=== PATIENT | female | born 2000 | race African-American/Black ===

== ENCOUNTER 2021-03-21 08:58 | Inpatient (IN) ==
[2021-03-21] MEDS ORDERED: ONDANSETRON 4 MG/2 ML VIAL IV PRN (09:27)
[2021-03-21] MEDS ORDERED: MEPERIDINE 25 MG/1 ML VIAL IV PRN (09:27)
[2021-03-21] MEDS ORDERED: MEPERIDINE 50 MG/1 ML VIAL IV PRN (10:00)
[2021-03-21 10:48] LABS: Basophils % 0.3 % (0.0-0.8); Eosinophils % 0.4 % (0.00-10.9); Hematocrit 35.9 VOL% (35.7-47.0); Hemoglobin 11.6 GM/DL (12.0-16.0); Immature Granulocytes % 0.5 %; Immature Granulocytes Absolute 0.04 #; Lymphocytes % 26.6 % (21.3-54.2); Mean Corpuscular HGB Conc 32.3 GM/DL (32-36); Mean Corpuscular Volume 95.2 FL (87-102); Mean Platelet Volume 10.9 FL (9.6-12.0); Monocytes % 13.1 % (1.7-12.7); Neutrophils % 59.1 % (38.7-73.9); Platelet Count 191 T/CUMM (130-400); Red Blood Count 3.77 MC/CUMM (3.8-5.5); White Blood Count 7.5 T/CUMM (4-12)
[2021-03-21] MEDS: LACTATED RINGERS 1,000 ML IV SCH ×2 (17:55→21:17)
[2021-03-21] MEDS: MEPERIDINE 50 MG/1 ML VIAL IV PRN ×2 (18:17→20:37)
[2021-03-21] MEDS ORDERED: OXYTOCIN/LR 20 UNIT/1,000 ML BAG IV ONE ×2 (22:00→22:05)
[2021-03-21] MEDS ORDERED: miSOPROStoL 200 MCG TABLET ONE (22:05)
[2021-03-21] MEDS ORDERED: TRANEXAMIC ACID 1,000 MG/10 ML VIAL ONE (22:05)
[2021-03-21] MEDS ORDERED: CARBOPROST TROMETHAMINE 250 MCG/ML AMP IM ONE (22:06)
[2021-03-21] MEDS ORDERED: METHYLERGONOVINE 0.2 MG/1 ML AMP ONE (22:06)
[2021-03-21] MEDS ORDERED: LIDOCAINE 1% 50 ML VIAL ONE (22:09)
[2021-03-22 00:14] LABS: Cord Arterial Blood HCO3 20.9 MMOL/L
[2021-03-22 00:18] LABS: Cord Venous Blood HCO3 18.1 MMOL/L; Cord Venous Blood PCO2 42.9 MMHG
[2021-03-22] MEDS ORDERED: OXYTOCIN/LR 20 UNIT/1,000 ML BAG IV ONE ×2 (03:15→03:22)
[2021-03-22] MEDS ORDERED: ACETAMINOPHEN 325 MG TABLET PO PRN (03:22)
[2021-03-22] MEDS ORDERED: IBUPROFEN 800 MG TABLET PO PRN (03:22)
[2021-03-22] MEDS ORDERED: oxyCODONE/ACETAMINOPHEN 5-325 MG TABLET PO PRN ×2 (03:22)
[2021-03-22] MEDS ORDERED: DIPH/TET/ACEL PERT BOOSTER VACCINE 0.5 ML VIAL IM ONE (03:22)
[2021-03-22] MEDS ORDERED: WITCH HAZEL PADS 100/JAR TOP PRN (03:22)
[2021-03-22] MEDS ORDERED: BENZOCAINE 20%/MENTHOL 0.5% SPRAY 56 GM CAN TOP PRN (03:22)
[2021-03-22] MEDS ORDERED: BISACODYL 10 MG SUPP RECTAL PRN (03:22)
[2021-03-22] MEDS ORDERED: HYDROCORTISONE 2.5% RECTAL CREAM 30 GM TUBE TOP PRN (03:22)
[2021-03-22] MEDS ORDERED: RHO(D) IMMUNE GLOBULIN 300 MCG SYRINGE IM ONE (03:22)
[2021-03-22] MEDS ORDERED: LANOLIN 50% CREAM 0.3 OZ TUBE TOP PRN (03:22)
[2021-03-22] MEDS ORDERED: MEASLES/MUMPS/RUBELLA VACCINE 0.5 ML VIAL SUBCUT ONE (03:22)
[2021-03-22] MEDS: LACTATED RINGERS 1,000 ML IV SCH (04:05)
[2021-03-22 05:58] LABS: Basophils % 0.1 % (0.0-0.8); Hematocrit 34.5 VOL% (35.7-47.0); Hemoglobin 11.7 GM/DL (12.0-16.0); Immature Granulocytes % 0.7 %; Immature Granulocytes Absolute 0.17 #; Lymphocytes # 1.1 10*3/uL (1.4-4.0); Lymphocytes % 4.6 % (21.3-54.2); Mean Corpuscular HGB Conc 33.9 GM/DL (32-36); Mean Corpuscular Volume 92.7 FL (87-102); Mean Platelet Volume 11.4 FL (9.6-12.0); Monocytes % 7.5 % (1.7-12.7); Neutrophils % 87.1 % (38.7-73.9); Platelet Count 174 T/CUMM (130-400); Red Blood Count 3.72 MC/CUMM (3.8-5.5); Red Cell Distribution Width 12.5 % (9.3-17.3); White Blood Count 24.1 T/CUMM (4-12)
[2021-03-22 06:22] LABS: Band Neutrophils 1 % (0-10); Hypochromasia Slight; Lymphocytes 4 % (20-55); Microcytosis Slight; Platelet Estimate Adequate; Segmented Neutrophils 90 % (50-85); Total Cells Counted 100
[2021-03-22] MEDS: DOCUSATE SODIUM 100 MG CAPSULE PO SCH ×2 (10:56→20:49)
[2021-03-23] MEDS: DOCUSATE SODIUM 100 MG CAPSULE PO SCH (08:03)
[2021-03-23 09:39] VITALS: BP 118/76
== END 2021-03-23 13:55 | disposition home or self-care (01) | DRG 560 ==
LOC: N.LD 08:58 → N.OB 03-22 03:20
PROVIDERS: ADMIT Obstetrics & Gynecology; ATTEND Obstetrics & Gynecology